=== PATIENT | male | born 1950 | race Caucasian/White ===

== ENCOUNTER 2017-10-06 18:28 | Inpatient (IN) ==
[2017-10-06] MEDS ORDERED: PANTOPRAZOLE 40 MG VIAL IV STA (20:32)
[2017-10-06] MEDS ORDERED: SODIUM CHLORIDE 0.9% 1,000 ML IV STA ×2 (20:32→22:18)
[2017-10-06] MEDS ORDERED: ONDANSETRON 4 MG/2 ML VIAL IV STA (20:32)
[2017-10-06] MEDS ORDERED: PANTOPRAZOLE 40 MG VIAL IV ONE (20:37)
[2017-10-06] MEDS ORDERED: ONDANSETRON 4 MG/2 ML VIAL ONE (20:37)
[2017-10-06 21:20] LABS: INR 1.5; PT Patient Result 15.3 SECS; Partial Thromboplastin Time 24.7 SECS (0-40)
[2017-10-06 21:26] LABS: Troponin I Only 0.051 NG/ML (0.00-0.045)
[2017-10-06 21:57] LABS: Basophils # 0.1 10*3/uL (0.0-0.2); Basophils % 0.3 % (0.0-0.8); Hematocrit 41.1 VOL% (42.0-52.0); Hemoglobin 12.4 GM/DL (14.0-18.0); Immature Granulocytes Absolute 0.26 #; Lymphocytes # 1.7 10*3/uL (1.4-4.0); Lymphocytes % 6.3 % (21.2-54.2); Mean Corpuscular HGB Conc 30.2 GM/DL (32-36); Mean Corpuscular Hemoglobin 23 PG (27-34); Mean Platelet Volume 9.4 FL (9.6-12.0); Monocytes # 2.8 10*3/uL (0.11-0.8); Monocytes % 10.4 % (1.7-12.7); Platelet Count 723 T/CUMM (130-400); Red Blood Count 5.41 MC/CUMM (3.8-5.5); Red Cell Distribution Width 17.9 % (9.3-17.3); White Blood Count 26.8 T/CUMM (4-12)
[2017-10-06] MEDS ORDERED: metroNIDAZOLE INJ 500 MG in PREMIX 1 EACH IV STA (22:18)
[2017-10-06] MEDS ORDERED: cefTRIAXone 2,000 MG in SODIUM CHLORIDE 0.9% 100 ML IV ONE (22:18)
[2017-10-06] MEDS ORDERED: metroNIDAZOLE 500 MG/100 ML PREMIX IV ONE (22:31)
[2017-10-06] MEDS ORDERED: cefTRIAXone 1,000 MG VIAL ONE (22:31)
[2017-10-06 22:48] LABS: Potassium 4.7 MMOL/L (3.5-5.1)
[2017-10-06 22:50] LABS: Calcium 8.3 MG/DL (8.5-10.1)
[2017-10-06 22:51] LABS: Albumin 2.6 G/DL (3.4-5.0)
[2017-10-06 22:52] LABS: Osmolality,Calculated 260.8 MOS/KG (273-304)
[2017-10-06 23:02] LABS: Total Protein 5.8 G/DL (6.4-8.3)
[2017-10-07] MEDS ORDERED: ALBUTEROL NEB SOLN 5 MG/ML 20 ML/BOTTLE CONT NEB STA (01:42)
[2017-10-07] MEDS ORDERED: methylPREDNISolone SOD SUC 125 MG/2 ML VIAL IV STA (03:19)
[2017-10-07] MEDS ORDERED: SODIUM CHLORIDE 0.9% 1,000 ML IV SCH (03:19)
[2017-10-07] MEDS ORDERED: ALBUTEROL/IPRATROPIUM 3 ML NEB RESP TX PRN (03:19)
[2017-10-07] MEDS ORDERED: ZALEPLON 5 MG CAPSULE PO PRN (03:19)
[2017-10-07] MEDS ORDERED: MORPHINE 2 MG/1 ML SYRINGE IV PRN (03:19)
[2017-10-07] MEDS ORDERED: ONDANSETRON 4 MG/2 ML VIAL IV PRN (03:19)
[2017-10-07] MEDS ORDERED: AZITHROMYCIN INJ 500 MG in SODIUM CHLORIDE 0.9% 250 ML IV SCH (03:30)
[2017-10-07 04:29] LABS: ABG Base Excess -4.7 MMOL/L (-2.5-2.5); ABG HCO3 20.5 MMOL/L (20-26); ABG Oxygen Saturation 96.1 % (95-100); ABG PCO2 31.1 MM HG (35-48); ABG PH 7.399 (7.35-7.45); ABG TCO2 17.5 MMOL/L (23-27)
[2017-10-07 05:08] LABS: Basophils # 0.1 10*3/uL (0.0-0.2); Basophils % 0.2 % (0.0-0.8); Hematocrit 33.2 VOL% (42.0-52.0); Hemoglobin 10.6 GM/DL (14.0-18.0); Immature Granulocytes % 1.6 %; Immature Granulocytes Absolute 0.47 #; Lymphocytes # 0.4 10*3/uL (1.4-4.0); Lymphocytes % 1.2 % (21.2-54.2); Mean Corpuscular HGB Conc 31.9 GM/DL (32-36); Mean Corpuscular Hemoglobin 24 PG (27-34); Mean Corpuscular Volume 73.6 FL (87-102); Mean Platelet Volume 9.7 FL (9.6-12.0); Monocytes # 2.3 10*3/uL (0.11-0.8); Monocytes % 7.9 % (1.7-12.7); Neutrophils # 25.4 10*3/uL (1.4-7.4); Neutrophils % 89.1 % (38.7-73.9); Platelet Count 551 T/CUMM (130-400); Red Blood Count 4.51 MC/CUMM (3.8-5.5); Red Cell Distribution Width 17.2 % (9.3-17.3); White Blood Count 28.5 T/CUMM (4-12)
[2017-10-07 06:02] LABS: Albumin 2.5 G/DL (3.4-5.0); Bilirubin,Total 1.8 MG/DL (0.2-1.0); Calcium 7.8 MG/DL (8.5-10.1); Osmolality,Calculated 256.9 MOS/KG (273-304); Total Protein 5.4 G/DL (6.4-8.3)
[2017-10-07 06:03] LABS: Cholesterol 96 MG/DL (50-200); HDL Cholesterol 18 MG/DL (40-60); Magnesium 2.1 MG/DL (1.8-2.4); Risk Ratio 5.33; Triglycerides 93 MG/DL (2-150); VLDL CHOLESTEROL 18.6 MG/DL
[2017-10-07 06:10] LABS: Lactic Acid 6.4 MMOL/L (0.4-2.0); Lymphocytes 1 % (20-55); Platelet Estimate Increased; Segmented Neutrophils 92 % (50-85); Total Cells Counted 100
[2017-10-07 06:11] LABS: Hypochromasia 1+; Microcytosis 1+; Ovalocytes Slight
[2017-10-07] MEDS ORDERED: ALBUTEROL/IPRATROPIUM 3 ML NEB RESP TX SCH (07:00)
[2017-10-07] MEDS ORDERED: metroNIDAZOLE INJ 500 MG in PREMIX 1 EACH IV SCH (07:00)
[2017-10-07 07:53] VITALS: BP 75/55
[2017-10-07 09:00] LABS: HIV Antigen/Antibody Result Nonreactive (Nonreactive); Hepatitis A Ab IgM Result Negative (Negative); Hepatitis B Core IgM Quant 0.16 Index; Hepatitis B Core IgM Result Negative (Negative); Hepatitis B Surface Ag Quant 0.12 Index; Hepatitis B Surface Ag Result Negative (Negative); Hepatitis C Virus Ab Quant 0.07 Index; Hepatitis C Virus Ab Result Negative (Negative)
[2017-10-07] MEDS ORDERED: PANTOPRAZOLE 40 MG VIAL IV SCH (09:00)
[2017-10-07] MEDS ORDERED: cefTRIAXone 1,000 MG in SYRINGE 1 EACH IV SCH (10:00)
[2017-10-07] MEDS ORDERED: methylPREDNISolone SOD SUC 40 MG/1 ML VIAL IV SCH (11:00)
== END 2017-10-07 06:04 | disposition expired | DRG 377 ==
LOC: N.ED 18:28 → N.EDINP 10-07 02:35 → N.ICU 10-07 02:53
PROVIDERS: ADMIT Internal Medicine Infectious Disease; ATTEND Internal Medicine Infectious Disease